=== PATIENT | female | born 1965 | race Caucasian/White ===

== ENCOUNTER 2017-01-25 08:09 | Emergency (ER) | payer OTHER ==
[~2017-01-25 08:09] MED LIST: ALBUTEROL2.5 MG/3 M IH; ATIVAN1 M1 PO; CEFDINIR300 MG PO; CELEXA 20MG20 MG/TA1 PO; CELEXA20 M1 PO; FLONASE ALLERG9.9 ML NS; IPRATROPIUM BROM3 M1 IH; PHENERGAN 25 TA25 MG PO; PREDNISONE10 MG PO; PREDNISONE20 M1 PO; PRILOSEC10 M1 PO; PROAIR RESPICL90 MCG IH; PROAIR RESPICL90 MCG INH; PROVENTIL0.09 MG/A1 IH; PULMICORT0.5 MG/2 M IH; PULMICORT90 MCG/Ac1 INH; RELION VEN0.09 MG/Ac IH; XANAX 0.5MG0.5 MG PO; XANAX0.5 M1 PO; ZITHROMAX 250M250 MG PO; ZYRTEC10 M3 PO
[2017-01-25] MEDS ORDERED: SYMBICORT1 AE3 IH (08:36)
[2017-01-25] MEDS ORDERED: IPRATROPIUM BROM3 M1 IH (10:03)
[2017-01-25] MEDS ORDERED: PREDNISONE20 MG PO (10:03)
[2017-01-25] MEDS ORDERED: XOPENEX 3 ML3 M3 IH (10:03)
[2017-01-25] MEDS ORDERED: PHENERGAN 25 TA25 MG PO (10:03)
[2017-01-25] MEDS ORDERED: SYMBICORT1 AE2 IH (10:03)
[2017-01-25 11:15] VITALS: BP 119/81
== END 2017-01-25 10:59 | disposition home or self-care (01) ==
LOC: ED 08:09
DX: J45.901 Unspecified asthma with (acute) exacerbation (principal); T78.40XA Allergy, unspecified, initial encounter
CPT/HCPCS: J2930

== ENCOUNTER 2018-09-25 23:09 | Emergency (ER) | payer OTHER ==
[~2018-09-25] VITALS: Ht 167.6 cm; Wt 68.2 kg
[~2018-09-25 23:09] MED LIST changes: +PREDNISONE20 MG PO; +SYMBICORT1 AE2 IH; +SYMBICORT1 AE3 IH; +XOPENEX 3 ML3 M3 IH
[2018-09-25] MEDS ORDERED: ALBUTEROL2.5 MG/3 M IH (23:15)
[2018-09-25] MEDS ORDERED: HORMONES PO (23:17)
[2018-09-26] MEDS ORDERED: PREDNISONE10 MG PO (00:06)
[2018-09-26 00:08] VITALS: BP 133/83
== END 2018-09-26 00:08 | disposition home or self-care (01) ==
LOC: ED 23:09
DX: J45.901 Unspecified asthma with (acute) exacerbation (principal); F41.9 Anxiety disorder, unspecified; F32.9 Major depressive disorder, single episode, unspecified; K21.9 Gastro-esophageal reflux disease without esophagitis; Z87.891 Personal history of nicotine dependence; Z90.49 Acquired absence of other specified parts of digestive tract; Z90.710 Acquired absence of both cervix and uterus; Z98.82 Breast implant status
CPT/HCPCS: J7512

== ENCOUNTER → 2019-09-27 | Outpatient (CLI) | payer OTHER ==
[2019-06-11 09:04] VITALS: BP 151/106
[~2019-09-27] MED LIST changes: +HORMONES PO; +ZOFRAN4 M2 PO
== END ==
LOC: MAMMO 10:40
DX: Z12.31 Encounter for screening mammogram for malignant neoplasm of breast (principal)

== ENCOUNTER 2019-10-04 07:42 | Emergency (ER) | payer OTHER ==
[2019-10-04 08:12] LABS: BASO # 0.1 (0.02-0.10); EOS # 0.5 (0.04-0.40); EOS % 3.1 % (1.0-5.0); HEMATOCRIT 47.5 % (37.0-47.0); HEMOGLOBIN 15.5 g/dL (12.5-16.0); MEAN CELL VOLUME 96 fl (78-100); MEAN CORPUSCULAR HEMOGLOBIN 31 pg (27-31); MEAN CORPUSCULAR HGB CONC 33 g/dL (33-37); MEAN PLATELET VOLUME 10.3 fl (7.4-10.4); MONO # 1.2 (0.20-0.80); NEU # 6.5 (1.40-6.50); PLATELET COUNT 363 K/mm3 (130-400); RED BLOOD COUNT 4.95 M/mm3 (4.10-5.30); RED CELL DISTRIBUTION WIDTH 12.8 % (11.5-14.5); WHITE BLOOD COUNT 14.8 K/mm3 (4.8-10.8)
[2019-10-04 08:25] LABS: ALBUMIN 4.6 g/dL (3.5-5.0); POTASSIUM 4.2 mmol/L (3.5-5.1); SODIUM 140 mmol/L (136-145)
[2019-10-04 08:26] LABS: CALCIUM 9.9 mg/dL (8.3-10.5)
[2019-10-04 08:27] LABS: GLUCOSE 146 mg/dL (65-105); TOTAL PROTEIN 7.7 g/dL (6.4-8.3)
[2019-10-04 08:28] LABS: CARBON DIOXIDE 21 mmol/L (22-29)
[2019-10-04 08:29] LABS: TOTAL BILIRUBIN 0.3 mg/dL (0.2-1.2)
[2019-10-04 08:33] LABS: AST-SGOT 20 U/L (5-34)
[2019-10-04 08:34] LABS: ALT/SGPT 14 U/L (0-55)
[2019-10-04 08:45] LABS: LYMPH# 6.5 (1.50-4.00); TROPONIN-I < 0.03 ng/mL (<0.030)
[2019-10-04 09:18] LABS: D-DIMER 0.2 mg/L FEU (0.15-0.50)
[2019-10-04 11:56] LABS: URINE APPEARANCE CLEAR; URINE BILIRUBIN NEGATIVE (NEGATIVE); URINE COLOR YELLOW; URINE GLUCOSE NEGATIVE (NEGATIVE); URINE KETONE NEGATIVE (NEGATIVE); URINE NITRATE NEGATIVE (NEGATIVE); URINE PROTEIN(semi-quant) TRACE mg/dL (NEGATIVE); URINE UROBILINOGEN NORMAL (NORMAL)
[2019-10-04 11:57] LABS: URINE BLOOD NEGATIVE (NEGATIVE); URINE LEUKOCYTE ESTERASE TRACE (NEGATIVE)
[2019-10-04 14:30] VITALS: BP 137/81
== END 2019-10-04 14:30 | disposition short-term general hospital (02) ==
LOC: ED 07:42
PROVIDERS: Nurse Practitioner
DX: J45.909 Unspecified asthma, uncomplicated (principal); R06.03 Acute respiratory distress; Z87.891 Personal history of nicotine dependence
CPT/HCPCS: J2060; J2550; J2930